=== PATIENT | female | born 1950 | race Caucasian/White ===

== ENCOUNTER 2019-01-15 15:33 | Emergency (ER) | payer MEDICARE ==
[2019-01-15] MEDS ORDERED: LORAZEPAM 1 MG TABLET ONE ×2 (16:10→19:30)
[2019-01-15 16:14] LABS: EOSINOPHILS % (AUTO) 0.1 % (0.0-8.0); HEMATOCRIT 35.3 % (36-48); LYMPHOCYTES % (AUTO) 24.1 % (21.0-51.0); MEAN CORPUSCULAR HEMOGLOBIN 32.6 pg (27.0-33.0); MEAN CORPUSCULAR HGB CONC 33.6 g/dL (32.0-36.0); MONOCYTES % (AUTO) 12.1 % (3.0-13.0); NEUTROPHILS % (AUTO) 62.7 % (40.0-77.0); PLATELET COUNT (AUTO) 286 K/uL (130-400); RED BLOOD CELL COUNT(AUTO) 3.64 MIL/uL (4.00-5.50); RED CELL DISTRIBUTION WIDTH 14.4 % (11.0-15.5); WHITE BLOOD COUNT (AUTO) 7.2 K/uL (4.8-10.8)
[2019-01-15 16:28] LABS: CREATININE 1.3 mg/dL (0.5-1.5); POTASSIUM 4.9 mmol/L (3.5-5.1)
[2019-01-15 16:30] LABS: INR 0.82 (0.85-1.15); PROTHROMBIN TIME 8.6 SEC (9.6-11.6)
[2019-01-15 16:32] LABS: ALBUMIN 4.2 g/dL (3.5-5.0); BILIRUBIN,TOTAL 0.9 mg/dL (0.2-1.0); TOTAL PROTEIN, SERUM 7.5 g/dL (6.0-8.3)
[2019-01-15 16:33] LABS: AMPHET/METH SCREEN,URINE NEGATIVE (NEGATIVE); BARBITURATE SCREEN, URINE NEGATIVE (NEGATIVE); BENZODIAZEPINES SCREEN,URINE NEGATIVE (NEGATIVE); CANNABINOID SCREEN,URINE POSITIVE (NEGATIVE); COCAINE SCREEN,URINE NEGATIVE (NEGATIVE); OPIATE SCREEN,URINE NEGATIVE (NEGATIVE); PHENCYCLIDINE SCREEN,URINE NEGATIVE (NEGATIVE)
[2019-01-15] MEDS ORDERED: THIAMINE HCL 100 MG/ML 2ML VIAL ONE (21:17)
[2019-01-16] MEDS ORDERED: LORAZEPAM 0.5 MG TABLET ONE (00:41)
== END 2019-01-16 01:12 ==
LOC: EDH 15:33
DX: F10.239 Alcohol dependence with withdrawal, unspecified (principal); R79.1 Abnormal coagulation profile; Z88.0 Allergy status to penicillin; Z91.010 Allergy to peanuts; Z87.891 Personal history of nicotine dependence
CPT/HCPCS: 36415; 80053; 80305; 85025; 85610; 85730; 93005; 96372; 99285; G0480; J3411